=== PATIENT | male | born 1980 | race Caucasian/White ===

== ENCOUNTER 2019-03-16 18:59 | Emergency (ER) | payer BC ==
--- NOTE | 2019-03-16 20:04 | EDM.PDOC ---
ED HPI GENERAL MEDICAL PROBLEM - General Chief Complaint: Skin Complaint Stated Complaint: NEEDS EYE DRAINAGE Time Seen by Provider: 03/16/19 19:44 - History of Present Illness INITIAL COMMENTS - FREE TEXT/NARRATIVE: HISTORY AND PHYSICAL: History of present illness: The patient is a 38-year-old male who has a history of getting staph infections all over his body and presents with a 2 day history of swelling to his left eyebrow area after he tried to squeeze a pimple. The patient says that he has acne and he visibly has other scabs on his face as well as on his extremities and says that in the past when he has squeeze pimples or pustules he has gotten staff. He said that he did the same 2 days ago and it is more swollen and he thinks that it needs to be "cut open"area at his last tetanus shot was 4 years ago and he denies any other systemic complaints. He says he does not wear glasses or contacts and does not have blurred vision no sinus drainage no ear pain no sore throat no fevers chills or upper respiratory symptoms. He has no other areas that are swollen more concerning. Review of systems: As per history of present illness and below otherwise all systems reviewed and negative. Past medical history: As per history of present illness and as reviewed below otherwise noncontributory. Surgical history: As per history of present illness and as reviewed below otherwise noncontributory. Social history: No reported history of drug or alcohol abuse. Family history: As per history of present illness and as reviewed below otherwise noncontributory. Physical exam: General: Well developed well-nourished man who is nontoxic and vital signs are noted by me. On his face and upper extremities and visible skin areas multiple scabs can be seen of varying ages and stages of healing. He is speaking clearly and easily HEENT: Atraumatic, normocephalic, pupils reactive, negative for conjunctival pallor or scleral icterus, mucous membranes moist, throat clear, neck supple, nontender, trachea midline. Is no cervical adenopathy no sinus tenderness and no visible nasal drainage. EOMs are intact and visual acuity is documented per nursing as 20/20 throughout. On the face there are multiple scab seen of varying ages and healing and at the left eyebrow there is oval-like area of induration seen that is well demarcated and mobile but is not ballotable or soft and is more indurated and hard/rubbery in character. There is only minimal tenderness in this area and there is no palpable bony deformities or crepitus. At the center there is a small scab-like area but there is no expressible drainage or fluctuance appreciated. Mild tenderness to palpation in the surrounding soft tissues have no other raised areas. Lungs: Clear to auscultation, breath sounds equal bilaterally, chest nontender. Heart: S1S2, regular rate and rhythm no overt murmurs Abdomen: Soft, nondistended, nontender. Negative for masses or hepatosplenomegaly. Negative for costovertebral tenderness. Pelvis: deferred Genitourinary: Deferred. Rectal: Deferred. Extremities: Atraumatic, negative for cords or calf pain. Neurovascular unremarkable. On the upper extremities there are old scars seen and scattered scabs and lesions of varying ages of healing but no discrete areas of drainage are appreciated. Neuro: Awake, alert, oriented. Cranial nerves II through XII unremarkable. Cerebellum unremarkable. Motor and sensory unremarkable throughout. Exam nonfocal. Diagnostics: [] Therapeutics: I discussed with the patient that at this point I would not do incision and drainage of this area as it is a hardened indurated area and not fluctuant in any way. We talked about putting him on antibiotics and returning to the ED if it did come up to her head that I could easily drain. I tried to explain to him that there are other important structures in this region including the supraorbital nerve and the levator muscles and he seemed to be very disinterested in my conversation. He tells me that he has had staph infections 100s of times before and he needs me to cut it open. I told him that that would not be prudent at this time nor appropriate and that I would place him on antibiotics and informed him that I would be here the next couple of nights if the symptoms did not improve and we could reevaluate. I departed the room and went to do my documentation and prepare his prescription for antibiotics and when the nurse reentered the room to do her evaluation the patient had eloped from the ED Impression: Cellulitis of left eyebrow, eloped from the ED prior to discharge papers and antibiotic prescription Definitive disposition and diagnosis as appropriate pending reevaluation and review of above. left eyebrow Pain Score (Numeric/FACES): 1 - Related Data Allergies Allergy/AdvReac Type Severity Reaction Status Date / Time No Known Allergies Allergy Verified 03/16/19 19:14 Home Meds: Home Meds . [No Known Home Meds] 03/16/19 [History] Past Medical History - Past Surgical History HEENT Surgical History: Reports: LASIK Dermatological Surgical History: Reports: Skin Graft Social & Family History - Family History Family Medical History: Noncontributory - Tobacco Use Smoking Status *Q: Never Smoker - Recreational Drug Use Recreational Drug Use: No ED ROS GENERAL - Review of Systems Review Of Systems: Comprehensive ROS is negative, except as noted in HPI. ED EXAM, SKIN/RASH Exam: See Below (see Dictation) Course - Vital Signs Last Recorded V/S: Last Vital Signs Temp 36.4 C 03/16/19 19:35 Pulse 93 03/16/19 19:35 Resp 18 03/16/19 19:35 BP 125/82 03/16/19 19:35 Pulse Ox 96 03/16/19 19:35 Departure - Departure Time of Disposition: 20:04 Disposition: Eloped 07 Condition: Good Clinical Impression: Cellulitis Qualifiers: Site of cellulitis: face Qualified Code(s): L03.211 - Cellulitis of face - Discharge Information Referrals: PCP,None [Primary Care Provider] - Additional Instructions: Please note that the patient eloped from the ED prior to me doing discharge papers and giving him a prescription for antibiotics Sepsis Event Note - Evaluation Sepsis Screening Result: No Definite Risk - Focused Exam Vital Signs: Vital Signs Temp Pulse Resp BP Pulse Ox 03/16/19 19:35 36.4 C 93 18 125/82 96 Date Exam was Performed: 03/16/19 Time Exam was Performed: 19:54
== END 2019-03-16 20:04 | disposition left against medical advice (07) ==
LOC: MW.ED 18:59
DX: L03.211 Cellulitis of face (principal)
CPT/HCPCS: 99282; 99283

== ENCOUNTER 2019-03-17 02:52 | Emergency (ER) | payer BC ==
--- NOTE | 2019-03-17 03:03 | EDM.PDOC ---
ED HPI GENERAL MEDICAL PROBLEM - General Stated Complaint: LT EYE IS SWOLLEN Time Seen by Provider: 03/17/19 02:55 - History of Present Illness INITIAL COMMENTS - FREE TEXT/NARRATIVE: HISTORY AND PHYSICAL: History of present illness: The patient is a 38-year-old male who was seen by me earlier this evening on the shift with complaints of swelling and concerns about infection at his left eyebrow area; he was insisting that I do an incision and drainage after my evaluation and conversation with him I tried to inform him that on that examination there was no fluctuance in the area and it was indurated and that antibiotic therapy was indicated and he eloped from the ED. The patient has a history of skin infections and says he has had "100s of them" and on his prior visit was very adamant about me performing a procedure on it although I did not feel that was indicated on that visit. He had denied other systemic complaints earlier such as fever chills sinus pressure or drainage or visual changes and had no fevers or chills and was eating and drinking normally. He told me on that visit his tetanus was up-to-date, 4 years ago, and that the area initially was a pimple which he tried to pop and then it proceeded to grow in size and swelling. This is been ongoing for 2 days. Patient represents currently in the ED with same complaints and says that he tried to put ice on it but now his upper eyelid is swollen and he cannot open his eyelid without discomfort. His eye itself has no pain or drainage and he does not have any blurred vision. He is telling me that he needs to be able to work and he is concerned about the progression of this. When I asked him why he left ED earlier he said that he didn't think anyone was doing anything but now he returns for Review of systems: As per history of present illness and below otherwise all systems reviewed and negative. Past medical history: As per history of present illness and as reviewed below otherwise noncontributory. Surgical history: As per history of present illness and as reviewed below otherwise noncontributory. Social history: No reported history of drug or alcohol abuse. Family history: As per history of present illness and as reviewed below otherwise noncontributory. Physical exam: General: Well-developed well-nourished man who is nontoxic and vital signs are noted by me. HEENT: Atraumatic, normocephalic, pupils reactive, sclera of the left eye is not injected and there is no drainage, there is some soft edema noted of the upper eyelid that was not present earlier but there is still no bony orbital defects deformities or crepitus and EOMI, at the left eyebrow area there is still on almond size oval area of induration that is indurated and hard without any fluctuance and there is surrounding soft tissue swelling without crepitus, there are some scattered scabs seen on the face which were present earlier and there is no evidence of any negative for conjunctival pallor or scleral icterus , mucous membranes moist, throat clear, neck supple, nontender, trachea midline. There is no sinus tenderness Lungs: Clear to auscultation, breath sounds equal bilaterally, chest nontender. Heart: S1S2, regular rate and rhythm no overt murmurs Abdomen: Soft, nondistended, nontender. Pelvis: Deferred Genitourinary: Deferred. Rectal: Deferred. Extremities: Atraumatic, negative for cords or calf pain. Neurovascular unremarkable. There are scattered old scars and scabs and lesions seen on the upper extremities of varying ages of healing but there is no evidence of any erythema swelling and there is full range of motion Neuro: Awake, alert, oriented. Cranial nerves II through XII unremarkable. Cerebellum unremarkable. Motor and sensory unremarkable throughout. Exam nonfocal. Diagnostics: CBC CMP CT scan of the soft tissue face--see below Therapeutics: IV placement, Vancomycin, Toradol--see below Patient is now refusing the CT scan of his soft tissue face and have explained to him at length again that I do not feel comfortable doing any incision draining unless I know if there is truly fluid present that needs drainage and what structures are in the surround so that I do not compromise or hurt him in any way. He says he states understanding and is declining the CAT scan but he will finish out the vancomycin. Initially he had told the nurse that he wanted to stop the IV infusion and not received the antibiotic. I will give him Augmentin and Bactrim for home and have advised him to return if he would like further care and evaluation of this problem. I've advised him that this infection just as a pure cellulitis can extend into his deeper tissues and the CT scan would eliminate that as a possible problem Impression: Cellulitis of left eyebrow, refusing CT scan evaluation CT scan eval Definitive disposition and diagnosis as appropriate pending reevaluation and review of above. - Related Data Allergies Allergy/AdvReac Type Severity Reaction Status Date / Time No Known Allergies Allergy Verified 03/16/19 19:14 Home Meds: Home Meds . [No Known Home Meds] 03/16/19 [History] Past Medical History - Past Surgical History HEENT Surgical History: Reports: LASIK Dermatological Surgical History: Reports: Skin Graft Social & Family History - Family History Family Medical History: Noncontributory ED ROS GENERAL - Review of Systems Review Of Systems: Comprehensive ROS is negative, except as noted in HPI. ED EXAM, GENERAL - Physical Exam Exam: See Below (see Dictation) Course - Vital Signs Last Recorded V/S: Last Vital Signs Temp 36.1 C 03/17/19 02:55 Pulse 84 03/17/19 02:55 Resp 18 03/17/19 02:55 BP 140/93 H 03/17/19 02:55 Pulse Ox 96 03/17/19 02:55 - Orders/Labs/Meds Orders: Active Orders 24 hr Category Date Time Status Max Facial Sinus w Cont [CT] Stat Exams 03/17/19 03:08 Ordered COMPREHENSIVE METABOLIC PN,CMP [CHEM] Stat Lab 03/17/19 03:15 Received Sodium Chloride 0.9% [Saline Flush] Med 03/17/19 03:08 Active 10 ml FLUSH ASDIRECTED PRN Sodium Chloride 0.9% [Saline Flush] Med 03/17/19 03:08 Active 2.5 ml FLUSH ASDIRECTED PRN Vancomycin 1 gm Med 03/17/19 03:14 Active Sodium Chloride 0.9% [Normal Saline (AdvBag)] 250 ml IV ONETIME Saline Lock Insert [OM.PC] Stat Oth 03/17/19 03:08 Ordered Medication Orders Vancomycin HCl 1 gm/ Sodium (Chloride) 250 mls @ 166 mls/hr IV ONETIME ONE Stop: 03/17/19 04:44 Last Admin: 03/17/19 03:28 Dose: 166 mls/hr Sodium Chloride (Saline Flush) 10 ml FLUSH ASDIRECTED PRN PRN Reason: Keep Vein Open Sodium Chloride (Saline Flush) 2.5 ml FLUSH ASDIRECTED PRN PRN Reason: Keep Vein Open Labs: Laboratory Tests 03/17/19 Range/Units 03:15 WBC 11.76 H (4.0-11.0) K/uL RBC 5.15 (4.50-5.90) M/uL Hgb 15.8 (13.0-17.0) g/dL Hct 44.6 (38.0-50.0) % MCV 86.6 (80.0-98.0) fL MCH 30.7 (27.0-32.0) pg MCHC 35.4 (31.0-37.0) g/dL RDW Std Deviation 38.6 (28.0-62.0) fl RDW Coeff of Bryon 12 (11.0-15.0) % Plt Count 286 (150-400) K/uL MPV 9.50 (7.40-12.00) fL Neut % (Auto) 74.9 (48.0-80.0) % Lymph % (Auto) 13.3 L (16.0-40.0) % [place] % (Auto) 9.5 (0.0-15.0) % Eos % (Auto) 2.0 (0.0-7.0) % Baso % (Auto) 0.3 (0.0-1.5) % Neut # (Auto) 8.8 H (1.4-5.7) K/uL Lymph # (Auto) 1.6 (0.6-2.4) K/uL [place] # (Auto) 1.1 H (0.0-0.8) K/uL Eos # (Auto) 0.2 (0.0-0.7) K/uL Baso # (Auto) 0.0 (0.0-0.1) K/uL Nucleated RBC % 0.0 /100WBC Nucleated RBCs # 0 K/uL Meds: Medications Generic Name Dose Route Start Last Admin Trade Name Freq PRN Reason Stop Dose Admin Vancomycin HCl 1 gm/ Sodium 250 mls @ 166 mls/hr 03/17/19 03:14 03/17/19 03: 28 Chloride IV 03/17/19 04:44 166 mls/hr ONETIME ONE Administration Sodium Chloride 10 ml 03/17/19 03:08 Saline Flush FLUSH ASDIRECTED PRN Keep Vein Open Sodium Chloride 2.5 ml 03/17/19 03:08 Saline Flush FLUSH ASDIRECTED PRN Keep Vein Open Discontinued Medications Generic Name Dose Route Start Last Admin Trade Name Fregreg PRN Reason Stop Dose Admin Ketorolac Tromethamine 30 mg 03/17/19 03:15 03/17/19 03:28 Toradol IVPUSH 03/17/19 03:16 30 mg ONETIME ONE Administration Departure - Departure Time of Disposition: 03:48 Disposition: Home, Self-Care 01 Condition: Good Clinical Impression: Cellulitis Qualifiers: Site of cellulitis: face Qualified Code(s): L03.211 - Cellulitis of face - Discharge Information Referrals: PCP,None [Primary Care Provider] - Additional Instructions: The following information is given to patients seen in the emergency department who are being discharged to home. This information is to outline your options for follow-up care. We provide all patients seen in our emergency department with a follow-up referral. The need for follow-up, as well as the timing and circumstances, are variable depending upon the specifics of your emergency department visit. If you don't have a primary care physician on staff, we will provide you with a referral. We always advise you to contact your personal physician following an emergency department visit to inform them of the circumstance of the visit and for follow-up with them and/or the need for any referrals to a consulting specialist. The emergency department will also refer you to a specialist when appropriate. This referral assures that you have the opportunity for followup care with a specialist. All of these measure are taken in an effort to provide you with optimal care, which includes your followup. Under all circumstances we always encourage you to contact your private physician who remains a resource for coordinating your care. When calling for followup care, please make the office aware that this follow-up is from your recent emergency room visit. If for any reason you are refused follow-up, please contact the [facility] emergency department at and ask to speak to the emergency department charge nurse. [facility] Primary care- Internal Medicine and Family [address] [id number] Please do not manipulate the area and take antibiotics as you have been prescribed and directed. Return to ER as needed and as discussed and if he would like further evaluation of this problem. Call and schedule a follow-up appointment with your provider or one of ours in the clinic for reevaluation and further care. Sepsis Event Note - Focused Exam Vital Signs: Vital Signs Temp Pulse Resp BP Pulse Ox 03/17/19 02:55 36.1 C 84 18 140/93 H 96 Date Exam was Performed: 03/17/19 Time Exam was Performed: 03:44 - My Orders Last 24 Hours: My Active Orders 03/17/19 03:08 Max Facial Sinus w Cont [CT] Stat Sodium Chloride 0.9% [Saline Flush] 10 ml FLUSH ASDIRECTED PRN Sodium Chloride 0.9% [Saline Flush] 2.5 ml FLUSH ASDIRECTED PRN Saline Lock Insert [OM.PC] Stat 03/17/19 03:14 Vancomycin 1 gm Sodium Chloride 0.9% [Normal Saline (AdvBag)] 250 ml IV ONETIME 03/17/19 03:15 COMPREHENSIVE METABOLIC PN,CMP [CHEM] Stat - Assessment/Plan Last 24 Hours: My Active Orders 03/17/19 03:08 Max Facial Sinus w Cont [CT] Stat Sodium Chloride 0.9% [Saline Flush] 10 ml FLUSH ASDIRECTED PRN Sodium Chloride 0.9% [Saline Flush] 2.5 ml FLUSH ASDIRECTED PRN Saline Lock Insert [OM.PC] Stat 03/17/19 03:14 Vancomycin 1 gm Sodium Chloride 0.9% [Normal Saline (AdvBag)] 250 ml IV ONETIME 03/17/19 03:15 COMPREHENSIVE METABOLIC PN,CMP [CHEM] Stat
[2019-03-17] MEDS ORDERED: Sodium Chloride 0.9% 2.5 ML Syringe FLUSH PRN (03:08)
[2019-03-17] MEDS ORDERED: Sodium Chloride 0.9% 10 ML Syringe FLUSH PRN (03:08)
[2019-03-17] MEDS ORDERED: Ketorolac 30 MG/ML SDV IVPUSH ONE (03:15)
[2019-03-17 03:43] LABS: BLOOD UREA NITROGEN,BUN 26 mg/dL (7.0-18.0); CARBON DIOXIDE,CO2 26.1 mmol/L (21.0-32.0); CHLORIDE,CL 102 mmol/L (98-107); GLUCOSE RANDOM 119 mg/dL (74-106); POTASSIUM,K 4.1 mmol/L (3.5-5.1); SODIUM,NA 137 mmol/L (136-148)
== END 2019-03-17 05:00 | disposition home or self-care (01) ==
LOC: MW.ED 02:52
DX: L03.211 Cellulitis of face (principal)
CPT/HCPCS: 36415; 80053; 85025; 96365; 96366; 96375; 99284; J1885; J3370; J7050